=== PATIENT | male | born 2000 | race Hispanic/Latino ===

== ENCOUNTER 2023-02-23 07:56 | Day surgery (SDC) | payer OTHER ==
[2023-02-20 13:03] LABS: BASOPHILS # (AUTO) 0.04 K/uL (0.00-0.20); BASOPHILS % (AUTO) 0.7 % (0.0-5.0); EOSINOPHILS # (AUTO) 0.08 K/uL (0.00-0.70); EOSINOPHILS % (AUTO) 1.5 % (0.0-8.0); HEMATOCRIT 42.5 % (42-54); IMMATURE GRANULOCYTE ABSOLUTE 0.01 K/uL (0-1); LYMPHOCYTES # (AUTO) 1.9 K/uL (1.0-4.8); LYMPHOCYTES % (AUTO) 35.3 % (21.0-51.0); MEAN CORPUSCULAR HEMOGLOBIN 26.6 pg (27.0-33.0); MEAN CORPUSCULAR HGB CONC 32.7 g/dL (32.0-36.0); MEAN CORPUSCULAR VOLUME 81.3 fL (79-99); MONOCYTES # (AUTO) 0.4 K/uL (0.1-1.0); NEUTROPHILS % (AUTO) 55.3 % (40.0-77.0); PLATELET COUNT (AUTO) 229 K/uL (130-400); RED BLOOD CELL COUNT(AUTO) 5.23 MIL/uL (4.50-6.20); RED CELL DISTRIBUTION WIDTH 12.2 % (11.0-15.5); WHITE BLOOD COUNT (AUTO) 5.4 K/uL (4.8-10.8)
[2023-02-20 13:15] VITALS: BP 145/69; PULSE 69; RESP 19
[2023-02-20 13:19] LABS: INR 0.95 (0.85-1.15); PROTHROMBIN TIME 11.1 SEC (9.6-11.6)
[2023-02-20 13:21] LABS: PARTIAL THROMBOPLASTIN TIME 34.5 SEC (26.3-35.5)
[~2023-02-23] VITALS: Ht 185.4 cm; Wt 79.8 kg
[2023-02-23] VITALS (17 sets, daily range): BP systolic 127–140; BP diastolic 66–84; PULSE 65–81; RESP 15–18
[~2023-02-23 07:56] MED LIST: LIDOCAINE 1%-EPI 1:100,000 20 ML VIAL IJ ONE; OXYMETAZOLINE HCL SPRAY 15 ML BOTTLE NS ONE
[2023-02-23] MEDS ORDERED: CEFAZOLIN SODIUM 2 GM VIAL ONE (08:17)
[2023-02-23] MEDS ORDERED: LACTATED RINGERS 1000ML 1,000 ML IV ONE (08:17)
[2023-02-23] MEDS ORDERED: ROCURONIUM BROMIDE 10MG/1ML 5ML VL ONE (08:20)
[2023-02-23] MEDS ORDERED: ONDANSETRON 4MG INJ ONE (08:20)
[2023-02-23] MEDS ORDERED: PROPOFOL 10 MG/ML 20ML VIAL IV ONE (08:20)
[2023-02-23] MEDS ORDERED: MIDAZOLAM HCL 1 MG/ML 2ML VIAL ONE (08:20)
[2023-02-23] MEDS ORDERED: FENTANYL CITRATE PF 50 MCG/1 ML 2ML VIAL ONE (08:23)
[2023-02-23] MEDS ORDERED: LIDOCAINE HCL/EPINEPHRINE 50 ML VIAL IJ ONE (08:38)
[2023-02-23] MEDS ORDERED: OXYMETAZOLINE HCL SPRAY 15 ML BOTTLE ONE (09:01)
[2023-02-23] MEDS ORDERED: DEXAMETHASONE SOD PHOSPHATE 10MG/ML 1ML VIAL ONE (09:01)
[2023-02-23] MEDS ORDERED: LIDOCAINE 1%-EPI 1:100,000 20 ML VIAL IJ ONE (09:06)
[2023-02-23] MEDS ORDERED: OXYMETAZOLINE HCL SPRAY 15 ML BOTTLE NS ONE (09:06)
[2023-02-23] MEDS ORDERED: NEOSTIGMINE METHYLSULFATE 1MG/ML IV ONE (09:54)
[2023-02-23] MEDS ORDERED: GLYCOPYRROLATE 1 MG/5 ML SYRINGE ONE (09:54)
[2023-02-23] MEDS ORDERED: BACITRACIN 28.4 GM OINT TP ONE (09:56)
== END 2023-02-23 11:50 | disposition home or self-care (01) ==
LOC: DAH 07:56
PROVIDERS: ATTEND Otolaryngology Plastic Surgery within the Head & Neck
DX: J34.2 Deviated nasal septum (principal); J34.3 Hypertrophy of nasal turbinates; J34.89 Other specified disorders of nose and nasal sinuses; Z79.899 Other long term (current) drug therapy; Z79.01 Long term (current) use of anticoagulants
CPT/HCPCS: 85025; 85610; 85730; 36415; 30930; 30520; A6260; A4663; J7120 ×2; A4649 ×2; J3010; J3490 ×3; J1100; J2250; J2704; J2405; J2710; J0690; A4930; A4215; A4223; A4222; A4221; A4600